=== PATIENT | female | born 1980 | race Caucasian/White ===

== ENCOUNTER 2024-05-21 15:08 | Outpatient (CLI) | payer BC | END 2024-05-21 23:59 | disposition home or self-care (01) | LOC: MRI02 15:08 | PROVIDERS: ATTEND Physician Assistant Surgical | DX: M20.11 Hallux valgus (acquired), right foot (principal); M72.2 Plantar fascial fibromatosis; M79.671 Pain in right foot | CPT/HCPCS: 73718 ==